=== PATIENT | female | born 1975 | race Caucasian/White ===

== ENCOUNTER 2020-09-04 07:21 | Outpatient (REF) | payer BC, SELFPAY | END 2020-09-04 07:22 | disposition home or self-care (01) | LOC: HO.LAB 07:21 | PROVIDERS: Visit Provider Internal Medicine | DX: Z20.828 Contact with and (suspected) exposure to other viral communicable diseases (principal) | CPT/HCPCS: C9803; U0003 ==

== ENCOUNTER 2024-12-07 11:05 | Observation (INO) | payer OTHER, SELFPAY ==
--- NOTE | ~2024-12-07 | XR_ITS ---
EXAMINATION: XR CHEST CLINICAL INFORMATION: pain COMPARISON: None available. TECHNIQUE: 2 views of the chest were obtained. FINDINGS: Deep inspiration. Consolidation, pleural effusion or pneumothorax. Cardiomediastinal silhouette is normal. Osseous structures are intact. XR/XR chest 2V IMPRESSION: No acute airspace disease. Electronically signed by: Darrell Galo MD 12/07/2024 11:46 AM [facility]
--- NOTE | 2024-12-07 11:09 | ECG_ITS ---
Test Reason : CHEST PAIN Blood Pressure : */* mmHG Vent. Rate : 54 BPM Atrial Rate : 54 BPM P-R Int : 154 ms QRS Dur : 76 ms QT Int : 472 ms P-R-T Axes : * -2 138 degrees QTcB Int : 447 ms Limb leads reversal Sinus bradycardia T wave abnormality, consider lateral ischemia Abnormal ECG No previous ECGs available Referred By: Generic ED Physician Electronically Signed By: Parker Ivy
--- NOTE | 2024-12-07 11:17 | ED_ITS ---
HPI - General Adult General Chief complaint: Chest Pain Stated complaint: Chest Pain/ Tightness, Jaw Discomfort Time Seen by Provider: 12/07/24 12:38 Source: patient Mode of arrival: ambulatory Limitations: no limitations History of Present Illness ED Provider: ROBBY BAILEY PA-C HPI narrative: 49 year old female with no significant pmhx presents to the ED today for evaluation of intermittent chest pain x1 week. Reports chest pain is sternal with occasional radiation to her left chest/ jaw. She does not see any correlation with exertion or eating. She reports waking with the pain this morning. Once at work, her chest began to feel tight like there was a knot that cannot untangle . Pain has been constant since waking this morning. She has not taken anything at home for this pain. Denies any personal cardiac hx or hx of VTE. Reports familial hx of HTN, no sudden cardiac deaths/ MIs. She is currently training for a 10k race that she will be running next month. No recent travel or long car rides. She is running approximately 20 miles/ week. Denies fever, chills, N/V, sob, wheezing, LE pain/swelling. Related Data Home Medications ?Medication ?Instructions ?Recorded ?Confirmed hmksdqxs-yui-jltfp ac 400 1 tab PO DAILY 12/07/24 12/07/24 mcg-calcium carb 500 mg-vit K1 20 mcg tablet (Women's 50 Plus Multivitamin) Allergies Allergy/AdvReac Type Severity Reaction Status Date / Time No Known Allergies Allergy Verified 12/07/24 11:20 Review of Systems 2 Review of Systems: Constitutional: No fever, chills, fatigue, night sweats, weight changes ENT/Mouth: No ear pain, hearing loss, nasal congestion, sinus pain, rhinorrhea, sore throat Eyes: No eye pain, swelling, redness, vision changes, discharge Cardio: No palpitations, YOON, orthopnea, peripheral edema, +chest pain Pulm: No SOB, cough, sputum, wheezing, dyspnea, hemoptysis GI: No nausea, vomiting, hematemesis, abdominal pain, diarrhea, constipation, hematochezia, melena : No irregular bleeding, dysuria, frequency, urgency, hesitancy, hematuria, flank pain, urinary flow changes, urinary incontinence or retention MSK: No back pain, neck pain, joint pain, myalgias Skin: No lesions, rashes Neuro: No weakness, numbness, paresthesias, LOC, dizziness, headache Psych: No anxiety/panic, depression, SI/HI, AH/VH All other systems reviewed and are negative. [facility] Past Medical History Attestation statement: The following information was validated with the patient. Source: old records reviewed and nursing notes reviewed Social History Social History Advance Directives: No Advance Directives Information Provided: Yes Do you have a plan to hurt others: No Plan Physical Exam ED Vital Signs: Vital Signs - 24 hr 12/07/24 11:19 12/07/24 14:22 Temperature 98 F 97.8 F Pulse Rate 54 50 Respiratory Rate 19 13 Blood Pressure 173/83 H 148/87 H Pulse Oximetry 98 100 Oxygen Delivery Method Room Air BMI result Body Mass Index 21.5 Hypertensive, bradycardic. Not hypoxic. Not tachycardic. General: Well appearing, in no acute distress. Skin: Warm, dry, intact. No rashes or lesions. Head: Normocephalic, atraumatic. EENT: Hearing is intact b/l. Conjunctiva clear. PERRLA. EOM intact. Moist mucous membranes.? Neck: Supple without LAD Cardiac: Chest wall symmetric. bradycardic, regular rhythm. no JVD or peripheral edema. Lungs: Normal respiratory effort without accessory muscle use. CTA bilaterally. No rales, rhonchi, or wheezes.? Abdomen: Soft, non-tender, non-distended. No rebound tenderness or guarding. Positive BS x4. Back: No midline spinous or paraspinal tenderness. No step off deformity. Ext: Upper and lower extremities atraumatic, without tenderness, deformity, swelling or erythema. no calf tenderness b/l. Neuro: AOx3. Normal speech. Ambulating with steady gait Course Course Course Narrative: RME, this is a rapid medical exam performed by Reed Leyva please refer to primary provider for complete H&P- 49 year old female presents for evaluation of chest pain. Patient reports intermittent chest pain for the last week. She is training for 10 km race next month. She reports that she was running about 20 miles per week. Her pain does not seem to be related to exertion or eating. Her EKG shows sinus bradycardia with T-wave inversions, plan for labs. Reevaluation(s) Reevaluation #1: CBC without leukocytosis or left shift. No anemia. H&H stable. D-dimer undetectable. PE unlikely. Chemistry without acute electrolyte abnormality requiring intervention. BUN slightly elevated to 19 with normal creatinine. Random glucose 90. Lipase WNL at 38. chest x-ray without infiltrate or consolidation to suggest pneumonia. Initial troponin 46.9. Repeat 42.1. ekg showing sinus bradycardia at a rate of 54 bpm with t wave inversions. > Given elevated troponins without priors to compare to, I did reach out to Cardiology. Dr. Ivy is requesting admission with plan for stress test tomorrow morning. Patient is agreeable. I reached out to hospitalist who will place admission orders. Medications Administered Discontinued Medications Generic Name Dose Route Start Last Admin Trade Name Freq PRN Reason Stop Dose Admin Aspirin 324 mg 12/07/24 13:06 12/07/24 13:13 Aspirin 81 Mg Tab.Chew PO 12/07/24 13:07 324 mg ONCE ONE Administration Medical Decision Making Medical Decision Making [facility] Narrative: 49 year old female with no significant pmhx presents to the ED today for evaluation of intermittent chest pain x1 week. vital signs notable for hypertension and bradycardia. otherwise wnl. she is nontoxic appearing and in NAD. not diaphoretic, sitting comfortably on exam bed. no respiratory distress, lungs clear. bradycardic w/ regular rhythm. no jvd or peripheral edema. no calf tenderness b/l. Exam without evidence of volume overload. EKG without signs of active ischemia. HEART score: 4. Given the timing of pain to ED presentation, plan to send delta troponin to evaluate for NSTEMI. Differential diagnosis also includes anemia, electrolyte abnormality, pneumonia, bronchitis, PE. Presentation not consistent pneumothorax, thoracic aortic dissection, cardiac effusion or tamponade. Plan: labs, troponin, EKG, CXR, ASA, reassessment Differential Diagnosis Differential Diagnoses: The differential diagnosis associated with the presentation includes as above. Admission/Observation Consideration of admission/observation: Escalation of care including admission/observation considered Patient admitted to medicine for elevated troponins w/ plan for stress test Consult Healthcare Provider Management of the patient was discussed with: Hospitalist (Neema Reddy) and Vice President Of Operations (Dr. Ivy (cardiology)) Lab Data [facility] Lab Attestation statement: I reviewed the patient's lab results. as above. 12/07/24 11:29 12/07/24 11:29 Labs: Lab Results 12/07/24 12/07/24 Range/Units 11:29 13:35 WBC 4.0 L (4.8-10.8) X10*3/uL RBC 4.53 (4.20-5.50) X10*6/uL Hgb 13.5 (12.0-16.0) g/dl Hct 40.1 (37.0-47.0) % MCV 88.5 (80.0-98.0) fL MCH 29.8 (27.0-33.0) pg MCHC 33.7 (31.0-35.0) g/dl RDW 13.5 (11.0-16.0) % Plt Count 192 (160-400) X10*3/uL MPV 11.5 (9.4-12.3) fL Immature Gran % (Auto) 0.2 (0.0-0.4) % Neut % (Auto) 45.5 (45-73) % Lymph % (Auto) 41.3 H (20-40) % [place] % (Auto) 9.5 (2-11) % Eos % (Auto) 2.0 (0-4) % Baso % (Auto) 1.5 (0-2) % Lymph # (Auto) 1.7 (1.2-4.9) X10*3/uL [place] # (Auto) 0.4 (0.1-1.2) X10*3/uL Eos # (Auto) 0.1 (0.0-0.4) X10*3/uL Baso # (Auto) 0.1 (0.0-0.2) X10*3/uL Abs Immat Gran (auto) 0.01 (0.00-0.03) X10*3/uL Absolute Neuts (auto) 1.8 L (2.0-8.3) x10*3/uL Absolute Nucleated RBC 0.000 (0.0-0.012) X10*3/uL Nucleated RBC % (auto) 0.0 (0.0-0.2) /100WBC PT 10.8 L (10.9-12.4) SEC INR 0.9 (0.9-1.1) D-Dimer High Sensitivty < 150 NG/ML Sodium 140 (135-145) mmol/L Potassium 4.2 (3.3-5.1) mmol/L Chloride 107 (96-108) mmol/L Carbon Dioxide 28 (22-29) mmol/L Anion Gap 9 L (12-20) BUN 19 H (9-16) mg/dL Creatinine 0.71 (0.5-1.4) mg/dL Estim Creat Clear Calc 81.9 Estimated GFR > 60 Random Glucose 90 (60-115) mg/dL Calcium 9.5 (8.4-10.2) mg/dL Magnesium 1.9 (1.6-2.6) mg/dL Total Bilirubin 0.5 (0.0-1.0) mg/dL AST 34 H (5-31) U/L ALT 21 (0-31) U/L Alkaline Phosphatase 48 (39-117) U/L Total Creatine Kinase 62 (26-140) U/L Troponin I High Sens 46.9 H 42.1 H (<3.5-17.0) ng/L Total Protein 7.1 (6.5-8.0) g/dL Albumin 4.3 (3.5-5.0) g/dL Lipase 38 (8-78) U/L Urine Color Yellow Urine Appearance Clear Urine pH 7.0 (5.0-9.0) Ur Specific [place] 1.010 (1.005-1.025) Urine Protein Negative (Neg-Trace) mg/dL Urine Glucose (UA) Negative (Negative) mg/dL Urine Ketones Negative (Negative) mg/dL Urine Blood Negative (Negative) Urine Nitrite Negative (Negative) Ur Leukocyte Esterase Negative (Negative) Urine RBC 0-2 (0-2) /HPF Urine WBC 0-5 (0-5) /HPF Ur Squamous Epith Cells 0-2 (0-2) /HPF Urine Bacteria 2+ (None Seen) Hyaline Casts 0-2 (0-2) /LPF Independent Interpretation I performed an independent interpretation of an: EKG and Plain X-Ray Interpretation: EKG showing sinus bradycardia with twave inversions cxr without infiltrate or consolidation Radiology Impression Discussion of test interpretation with radiology: I have reviewed the radiologist's reading. Radiologist Impression: Procedure(s): XR chest 2V Accession Number(s): [id number] cc: Ashley White MD; Elda Leyva EXAMINATION: XR CHEST CLINICAL INFORMATION: pain COMPARISON: None available. TECHNIQUE: 2 views of the chest were obtained. FINDINGS: Deep inspiration. Consolidation, pleural effusion or pneumothorax. Cardiomediastinal silhouette is normal. Osseous structures are intact. XR/XR chest 2V IMPRESSION: No acute airspace disease. Electronically signed by: Darrell Galo MD 12/07/2024 11:46 AM EST Prescription Management I considered prescription management with: Other (aspirin) Social Determinants Patient?s care significantly limited by Social Determinants of Health including: Other Social Determinant of Health Critical Care Time Critical Care Time Critical Care Time: No Discharge Plan Discharge Clinical Impression: Elevated troponin Patient Disposition: Admitted As Inpatient Print Language: [place]
[2024-12-07 11:19] VITALS: BP 173/83; PULSE 54; RESP 19; TEMP 36.6; O2SAT 98; BMI 21.5
[2024-12-07 11:35] LABS: MANUAL DIFF FLAG NO
[2024-12-07 11:36] LABS: Basophils Absolute Auto 0.1 X10*3/uL (0.0-0.2); Basophils Percent Auto 1.5 % (0-2); Eosinophils Absolute Auto 0.1 X10*3/uL (0.0-0.4); Hematocrit 40.1 % (37.0-47.0); Hemoglobin 13.5 g/dl (12.0-16.0); Imm Gran Abs Auto 0.01 X10*3/uL (0.00-0.03); Imm Gran Pct Auto 0.2 % (0.0-0.4); Lymphocytes Absolute Auto 1.7 X10*3/uL (1.2-4.9); Lymphocytes Percent Auto 41.3 % (20-40); Mean Corpuscular HGB Conc 33.7 g/dl (31.0-35.0); Mean Corpuscular Hemoglobin 29.8 pg (27.0-33.0); Mean Corpuscular Volume 88.5 fL (80.0-98.0); Mean Platelet Volume 11.5 fL (9.4-12.3); Monocytes Absolute Auto 0.4 X10*3/uL (0.1-1.2); Monocytes Percent Auto 9.5 % (2-11); Neutrophils Absolute Auto 1.8 x10*3/uL (2.0-8.3); Neutrophils Percent Auto 45.5 % (45-73); Platelet Count 192 X10*3/uL (160-400); Red Blood Count 4.53 X10*6/uL (4.20-5.50); Red Cell Distribution Width 13.5 % (11.0-16.0)
[2024-12-07 11:48] LABS: INTERNATIONAL NORM RATIO 0.9 (0.9-1.1); Prothrombin Time 10.8 SEC (10.9-12.4)
[2024-12-07 11:59] LABS: Troponin-I High Sensitivity 46.9 ng/L (<3.5-17.0)
[2024-12-07 12:00] LABS: Alanine Aminotransferase 21 U/L (0-31); Albumin Level 4.3 g/dL (3.5-5.0); Alkaline Phosphatase 48 U/L (39-117); Anion Gap 9 (12-20); Aspartate Amino Transferase 34 U/L (5-31); Bilirubin Total 0.5 mg/dL (0.0-1.0); Blood Urea Nitrogen 19 mg/dL (9-16); Calcium 9.5 mg/dL (8.4-10.2); Carbon Dioxide 28 mmol/L (22-29); Chloride 107 mmol/L (96-108); Creatinine Clr Calc Pharmacy 81.9; Estimated Glomerular Filt Rate > 60; Glucose Random 90 mg/dL (60-115); Lipase 38 U/L (8-78); Magnesium 1.9 mg/dL (1.6-2.6); Potassium 4.2 mmol/L (3.3-5.1); Sodium 140 mmol/L (135-145); Total Protein 7.1 g/dL (6.5-8.0)
[2024-12-07 12:49] LABS: D Dimer High Sensitivity < 150 NG/ML
[2024-12-07] MEDS: Aspirin 81 MG TAB.CHEW 324 MG PO (13:13)
[2024-12-07 13:41] LABS: Appearance Urine Clear; Color Urine Yellow; Glucose Urine UA Negative (Negative); Leukocyte Esterase Urine Negative (Negative); Nitrite Urine Negative (Negative); Urine Blood Negative (Negative); Urine Ketones Negative (Negative); Urine Protein Negative (Neg-Trace)
[2024-12-07 13:47] LABS: Bacteria Urine 2+ (None Seen); Hyaline Casts Urine 0-2 /LPF (0-2); RBC Urine 0-2 /HPF (0-2); Squamous Epithelial Cell Urine 0-2 /HPF (0-2); WBC Urine 0-5 /HPF (0-5)
[2024-12-07 14:00] LABS: Troponin-I High Sensitivity 42.1 ng/L (<3.5-17.0)
[2024-12-07 14:22] VITALS: BP 148/87; PULSE 50; RESP 13; TEMP 36.6; O2SAT 100
--- NOTE | 2024-12-07 14:45 | P.HPHOSP_ITS ---
History of Present Illness Date of Service: 12/07/24 Chief Complaint: chest pain 49 old female otherwise healthy who has been experiencing intermitent mild chest pain and jaw tightness on occasion. No shortness of breath. This has been ongoing for about a week. EKG showed no acute ischemic changes. Troponin I level ranges from 42 to 46. Cardiology is advising an inpatient stress test Review of Systems 2 Review of Systems: Gen: no fever Resp: no sob, no cough CV: no chest, no YOON, no leg edema GI: No n/v, no abd pain Neuro: No confusion Yes all other systems are reviewed and are negative [facility] Social History Unable to assess alcohol history related to: Unknown Patient Tobacco Use Status: Never used Tobacco Smoked in Last 30 Days: No Use of substances other than those prescribed or required for medical reasons: Unknown Advance Directives: No Advance Directives Information Provided: Yes Do you have a plan to hurt others: No Plan Nutrition Risks: No Nutritional Risk service: No Meds Allergies Allergy/AdvReac Type Severity Reaction Status Date / Time No Known Allergies Allergy Verified 12/07/24 11:20 Home Medications ?Medication ?Instructions ?Recorded ?Confirmed ?Last Taken ?Type oquimalx-boy-lqrnp ac 400 1 tab PO DAILY 12/07/24 12/07/24 12/06/24 History mcg-calcium carb 500 mg-vit K1 20 mcg tablet (Women's 50 Plus Multivitamin) Physical Exam 2 Vital Signs and Narrative: Vital Signs: Last Vital Signs Temp 97.8 F 12/07/24 14:22 Pulse 50 12/07/24 14:22 Resp 13 12/07/24 14:22 BP 148/87 H 12/07/24 14:22 Pulse Ox 100 12/07/24 14:22 O2 Del Method Room Air 12/07/24 14:22 BMI result Body Mass Index 21.5 Const: Other: General: AO X 3, no acute distress Resp: CTA bilateral CVS: S1,S2,RRR GI: +BS, NT, no distention Skin: No rash Neuro: motor grossly intact Psych: appropriate affect Results Labs 12/07/24 11:29 12/07/24 11:29 Labs: Laboratory Results - last 24 hr 12/07/24 12/07/24 11:29 13:35 MCV 88.5 MCH 29.8 MCHC 33.7 RDW 13.5 Plt Count 192 MPV 11.5 Immature Gran % (Auto) 0.2 Neut % (Auto) 45.5 Lymph % (Auto) 41.3 H [place] % (Auto) 9.5 Eos % (Auto) 2.0 Baso % (Auto) 1.5 Lymph # (Auto) 1.7 [place] # (Auto) 0.4 Eos # (Auto) 0.1 Baso # (Auto) 0.1 Abs Immat Gran (auto) 0.01 Absolute Neuts (auto) 1.8 L Absolute Nucleated RBC 0.000 Nucleated RBC % (auto) 0.0 PT 10.8 L INR 0.9 D-Dimer High Sensitivty < 150 Anion Gap 9 L Estim Creat Clear Calc 81.9 Estimated GFR > 60 Random Glucose 90 Calcium 9.5 Magnesium 1.9 Total Bilirubin 0.5 AST 34 H ALT 21 Alkaline Phosphatase 48 Total Creatine Kinase 62 Total Protein 7.1 Albumin 4.3 Lipase 38 Urine Color Yellow Urine Appearance Clear Urine pH 7.0 Ur Specific [place] 1.010 Urine Protein Negative Urine Glucose (UA) Negative Urine Ketones Negative Urine Blood Negative Urine Nitrite Negative Ur Leukocyte Esterase Negative Urine RBC 0-2 Urine WBC 0-5 Ur Squamous Epith Cells 0-2 Urine Bacteria 2+ Hyaline Casts 0-2 Imaging Radiologist's Impressions: Impressions Chest X-Ray 12/07/24 11:22 IMPRESSION: No acute airspace disease. Electronically signed by: Darerll Galo MD 12/07/2024 11:46 AM [facility] Assessment and Plan (1) Chest pain: Status: Acute Plan 49/F female with atypical chest pain and mild rise in troponin I. Plan observe overnight, Cardiology advising stress test inpatient. Further management by Cardiology Quality Stroke Does the patient have a stroke diagnosis?: No VTE Prior VTE?: No VTE Risk Level:: Medical - moderate - high VTE Device Contraindication: Treatment Not Indicated VTE Drug Contraindication: N/A - Med Ordered
--- NOTE | 2024-12-07 15:17 | PHA.MEDREC ---
Addendum entered by Kuldeep [facility] 12/07/24 15:20: med rec reviewed Original Note: Pharmacy Consult ? Medication Reconciliation Pharmacy has completed the medication reconciliation. Spoke with patient and she confirmed she is only taking a Women's 50+ Multivitamin once a day and states she took one this morning.
[2024-12-07 19:32] VITALS: BP 125/68; PULSE 52; RESP 12; TEMP 36.4; O2SAT 100
[2024-12-08] VITALS: BP 108/58; PULSE 53; RESP 16; TEMP 36.7; O2SAT 96
--- NOTE | 2024-12-08 | CA_ITS ---
Acquisition Time: 2024-12-08 11:29:05 Total Exercise Time: 00:10:29 Test Indications: CP ELVATED TROPONIN Medications: NONE Protocol: RADHA Max HR: 160 BPM 94% of Pred: 170 BPM Max BP: 160/80 mmHG Max Work Load: 12.5 METS Exercise Stress Test with exercise 10 mins 29 secs of Radha Protocol, achieving 94% MPHR, with reports of 1/10 dull upper left sided chest pain at baseline that is reproducible and states got more pronounced during exercise and reported moving to the right side, went upto 2 at peak exercise, without any arrythmias, with normotensive response to exercise. Without EKG changes meeting criteria for ischemia. In recovery, pt notes the discomfort as pressure and is at less than 1. Test reviewed with Dr. Ivy. May need further testing with images per Dr. Ivy. Referred By: Tim Pires Electronically Signed By: Tim Pires
[2024-12-08 03:28] VITALS: BP 123/66; PULSE 75; RESP 16; TEMP 36.6; O2SAT 98
[2024-12-08 06:22] VITALS: BP 107/66; PULSE 52; RESP 15; TEMP 36.7; O2SAT 98
--- NOTE | 2024-12-08 08:46 | MHC.CM.PN ---
CM met with Patient at bedside, in the ED, and addressed WOODS with her, providing Patient with the original and a copy will be placed on the chart. Patient lives alone in a house and she is functionally independent. No HCP completed today and PCP is Dr. Ashley White. Patient's car is here for transport to home at in.
[2024-12-08] MEDS: Multivitamin TABLET 1 TAB PO (09:07)
--- NOTE | 2024-12-08 11:00 | PC.NURSE ---
cardiology consult being completed at this time.
--- NOTE | 2024-12-08 11:34 | PM.CNCAR ---
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 She has been experiencing chest pain and came to the emergency department. She is saying when she exercises she does not get any symptoms but randomly she will get chest pains. She had 1 episode while at a restaurant eating which he has sharp pains under her ribs. She said she did not feel right after that and was getting fatigued and was not feeling herself. She also had another episode at rest. She clearly is describing no exertional symptoms. She has no significant past history. She has been active and exercising regularly. She uses multivitamins. [facility] Social History Social History Unable to assess alcohol history related to: Unknown Patient Tobacco Use Status: Never used Tobacco [facility] service: No Meds Allergies Allergy/AdvReac Type Severity Reaction Status Date / Time No Known Allergies Allergy Verified 12/07/24 11:20 Active Medications: Current Medications Acetaminophen (Acetaminophen 325 Mg Tablet) 650 mg PO Q6H PRN PRN Reason: Pain, Mild 1-3,fever,headache Al Hydroxide/Mg Hydroxide (Magnesium Hydrox/Alum Hydrox 30 Ml Oral.Susp) 30 ml PO Q4H PRN PRN Reason: Heartburn Calcium Carbonate (Calcium Carbonate 750 Mg Tab.Chew) 750 mg PO Q4H PRN PRN Reason: Heartburn Magnesium Hydroxide (Milk Of Magnesia 30 Ml Oral.Susp) 30 ml PO DAILY PRN PRN Reason: Constipation Melatonin (Melatonin 3 Mg Tablet) 6 mg PO BEDTIME PRN PRN Reason: Insomnia Multivitamins/Vitamin C (Multivitamin Tablet) 1 tab PO DAILY VERN Last Admin: 12/08/24 09:07 Dose: 1 tab Nitroglycerin (Nitroglycerin 0.4 Mg Tab.Subl) 0.4 mg SUBLINGUAL Q5MX3 PRN PRN Reason: Chest Pain Ondansetron HCl (Ondansetron Hcl 4 Mg/2 Ml Vial) 4 mg IVPUSH Q8H PRN PRN Reason: Nausea and Vomiting Polyethylene Glycol (Polyethylene Glycol 3350 17 Gm Powd.Pack) 17 gm PO DAILY PRN PRN Reason: Constipation Sodium Chloride (0.9 % Sodium Chloride Flush 3 Ml Syringe) 3 ml IVFLUSH QSHIFT VERN Last Admin: 12/08/24 07:11 Dose: Not Given Home Medications ?Medication ?Instructions ?Recorded ?Confirmed ?Last Taken ?Type bjyjfnkr-qsp-qpirj ac 400 1 tab PO DAILY 12/07/24 12/07/24 12/06/24 History mcg-calcium carb 500 mg-vit K1 20 mcg tablet (Women's 50 Plus Multivitamin) Physical Exam Vital Signs: Vital Signs: Last Vital Signs Temp 98.0 F 12/08/24 06:22 Pulse 52 12/08/24 06:22 Resp 15 12/08/24 06:22 BP 107/66 12/08/24 06:22 Pulse Ox 98 12/08/24 06:22 O2 Del Method Room Air 12/08/24 06:22 BMI result Body Mass Index 21.5 GENERAL APPEARANCE: in no acute distress, pleasant. NECK: no carotid bruit, no jugular venous distention. SKIN: no suspicious lesions, warm and dry. HEART: no murmurs, regular rate and rhythm. LUNGS: clear to auscultation bilaterally. ABDOMEN: soft, nontender. EXTREMITIES: no edema. PERIPHERAL PULSES: equal. NEUROLOGIC: No gross deficits, AAO X 3 Objective Labs and Meds 12/07/24 11:29 12/07/24 11:29 Lab results: Laboratory Results - last 24 hr 12/07/24 12/07/24 11:29 13:35 WBC 4.0 L RBC 4.53 Hgb 13.5 Hct 40.1 MCV 88.5 MCH 29.8 MCHC 33.7 RDW 13.5 Plt Count 192 MPV 11.5 Immature Gran % (Auto) 0.2 Neut % (Auto) 45.5 Lymph % (Auto) 41.3 H [place] % (Auto) 9.5 Eos % (Auto) 2.0 Baso % (Auto) 1.5 Lymph # (Auto) 1.7 [place] # (Auto) 0.4 Eos # (Auto) 0.1 Baso # (Auto) 0.1 Abs Immat Gran (auto) 0.01 Absolute Neuts (auto) 1.8 L Absolute Nucleated RBC 0.000 Nucleated RBC % (auto) 0.0 PT 10.8 L INR 0.9 D-Dimer High Sensitivty < 150 Sodium 140 Potassium 4.2 Chloride 107 Carbon Dioxide 28 Anion Gap 9 L BUN 19 H Creatinine 0.71 Estim Creat Clear Calc 81.9 Estimated GFR > 60 Random Glucose 90 Calcium 9.5 Magnesium 1.9 Total Bilirubin 0.5 AST 34 H ALT 21 Alkaline Phosphatase 48 Total Creatine Kinase 62 Troponin I High Sens 46.9 H 42.1 H Total Protein 7.1 Albumin 4.3 Lipase 38 Urine Color Yellow Urine Appearance Clear Urine pH 7.0 Ur Specific [place] 1.010 Urine Protein Negative Urine Glucose (UA) Negative Urine Ketones Negative Urine Blood Negative Urine Nitrite Negative Ur Leukocyte Esterase Negative Urine RBC 0-2 Urine WBC 0-5 Ur Squamous Epith Cells 0-2 Urine Bacteria 2+ Hyaline Casts 0-2 Imaging Radiologist's impression: Impressions Chest X-Ray 12/07/24 11:22 IMPRESSION: No acute airspace disease. Electronically signed by: Darrell Galo MD 12/07/2024 11:46 AM [facility] Assessment and Plan (1) Chest pain: Status: Acute Plan [age] year female presenting with chest pains. She is describing pain at rest on couple of occasions but does not get any exertional symptoms. High sensitivity troponin levels are in 40s. EKGs does not have any dynamic changes. She was referred for exercise stress test where she was able to exercise for more than 10 minutes and achieved 94% of predicted heart rate. She had upsloping ST depressions mostly. Overall the stress test is quite reassuring because she was getting pain at rest and was able to exercise 10 minutes without significant symptoms or changes on the ECG. Can be discharged back home. We will arrange follow-up for further workup if required. Thank you for allowing me to participate in the care of your patient. Please feel free to contact me if you have any questions. Procedures Date of Service Date of Service: 12/08/24
[2024-12-08 12:22] VITALS: BP 124/79; PULSE 95; RESP 16; TEMP 36.7; O2SAT 98
--- NOTE | 2024-12-08 13:29 | P.DS_ITS ---
DS: Providers Provider Date of Service: 12/08/24 Date of admission: 12/07/24 15:51 Date of discharge: 12/08/24 Primary care physician: Ashley White MD Consults: 12/07/24 15:51 Consult to Cardiology Routine Consulting Provider: [facility] Reason for consultation: chest pain, elevated troponin Has provider been notified: Yes DS: Diagnosis Discharge Diagnosis (1) Chest pain: Status: Acute DS: Summary Hospital Course Hospital Course: admission hpi Chief Complaint: chest pain 49 old female otherwise healthy who has been experiencing intermitent mild chest pain and jaw tightness on occasion. No shortness of breath. This has been ongoing for about a week. EKG showed no acute ischemic changes. Troponin I level ranges from 42 to 46. Cardiology is advising an inpatient stress test hosptial course: Patient was observed, and underwent excercise stress test by Daljit Saw with the following finding: Exercise Stress Test with exercise 10 mins 29 secs of Daljit Protocol, achieving 94% MPHR, with reports of 1/10 dull upper left sided chest pain at baseline that is reproducible and states got more pronounced during exercise and reported moving to the right side, went upto 2 at peak exercise, without any arrythmias, with normotensive response to exercise. Without EKG changes meeting criteria for ischemia. In recovery, pt notes the discomfort as pressure and is at less than 1 She will follow up with Dr. Ivy on outpatient basis for further testing. Time Attestation Discharge Coordination Time (in mins): 35 Quality: Safe Use of Opioids Does Pt have an Active Cancer Diagnosis on the Problem List?: No Quality: Stroke Does the patient have a stroke diagnosis?: No Physical Exam Vital Signs: Vital Signs: Last Vital Signs Temp 98.0 F 12/08/24 12:22 Pulse 95 12/08/24 12:22 Resp 16 12/08/24 12:22 BP 124/79 12/08/24 12:22 Pulse Ox 98 12/08/24 12:22 O2 Del Method Room Air 12/08/24 12:22 BMI result Body Mass Index 21.5 Const: Other: General: AO X 3, no acute distress Resp: CTA bilateral CVS: S1,S2,RRR GI: +BS, NT, no distention Skin: No rash Neuro: motor grossly intact Psych: appropriate affect DS: Data Data Completed and Pending Labs on day of discharge: Laboratory Results - last 24 hr 12/07/24 13:35 Troponin I High Sens 42.1 H Urine Color Yellow Urine Appearance Clear Urine pH 7.0 Ur Specific [place] 1.010 Urine Protein Negative Urine Glucose (UA) Negative Urine Ketones Negative Urine Blood Negative Urine Nitrite Negative Ur Leukocyte Esterase Negative Urine RBC 0-2 Urine WBC 0-5 Ur Squamous Epith Cells 0-2 Urine Bacteria 2+ Hyaline Casts 0-2 Discharge Plan Discharge Anticipated Discharge Date/Time: 12/08/24 13:30 Patient Disposition: Home, Self-Care Discharge Diagnosis: Chest pain, abnormal troponin I Referrals: Ashley White MD [Primary Care Provider] - 1 Week Discharge Medications: Continued Women's 50 Plus Multivitamin 400 mcg-500 mg calcium-20 mcg Tablet 1 tab PO DAILY Diet: Advance to usual diet Activity on Discharge: As tolerated Stand Alone Forms: Patient Portal Discharge page Print Language: Armenian Care Plan Goals: Further cardiac testing on outpatient basis Health Concerns: chest pain abnormal troponin Plan of Treatment: Outpatient cardiac testing with Dr. Ivy Assessment: see christi
--- NOTE | 2024-12-08 13:45 | MHC.CM.PN ---
Patient has been medically cleared for dc to home today, self care.
[2024-12-08 14:29] VITALS: BP 124/79; PULSE 95; RESP 16; TEMP 36.7; O2SAT 98
== END 2024-12-08 14:24 | disposition home or self-care (01) ==
LOC: HO.ED 15:40 → HO.EDOVER 16:04
PROVIDERS: Physician Assistant; Physician Assistant Medical; Admitting Provider Internal Medicine; Emergency Provider Emergency Medicine; PCP Family Medicine; Visit Provider Internal Medicine
DX: R07.9 Chest pain, unspecified (principal); R68.84 Jaw pain; R79.89 Other specified abnormal findings of blood chemistry
CPT/HCPCS: 36415; 71046; 80053; 81001; 82550; 83690; 83735; 84484; 85025; 85379; 85610; 93005; 93017; 99222; 99285

== ENCOUNTER → 2024-12-07 11:09 | Outpatient (BNV) | payer OTHER, SELFPAY | PROVIDERS: Admitting Provider Internal Medicine; Emergency Provider Emergency Medicine; PCP Family Medicine; Visit Provider Internal Medicine Cardiovascular Disease | DX: R07.9 Chest pain, unspecified (principal); R00.1 Bradycardia, unspecified | CPT/HCPCS: 93010 ==

== ENCOUNTER → 2024-12-07 11:22 | Outpatient (BNV) | payer BC, SELFPAY | PROVIDERS: PCP Family Medicine; Visit Provider Radiology Diagnostic Radiology | DX: R07.9 Chest pain, unspecified (principal) | CPT/HCPCS: 71046 ==

== ENCOUNTER 2024-12-07 15:51 | Outpatient (BNV) | payer OTHER, SELFPAY | END 2024-12-08 11:29 | PROVIDERS: Admitting Provider Internal Medicine; Emergency Provider Emergency Medicine; PCP Family Medicine | DX: R07.9 Chest pain, unspecified (principal) | CPT/HCPCS: 93016; 93018 ==

== ENCOUNTER → 2024-12-07 15:51 | Outpatient (BNV) | payer OTHER, SELFPAY | PROVIDERS: Admitting Provider Internal Medicine; Emergency Provider Emergency Medicine; PCP Family Medicine; Visit Provider Internal Medicine Cardiovascular Disease | DX: R07.9 Chest pain, unspecified (principal) | CPT/HCPCS: 99223 ==

== ENCOUNTER → 2024-12-07 15:51 | Outpatient (BNV) | payer OTHER, SELFPAY | PROVIDERS: Admitting Provider Internal Medicine; Emergency Provider Emergency Medicine; PCP Family Medicine; Visit Provider Internal Medicine | DX: R07.9 Chest pain, unspecified (principal) | CPT/HCPCS: 99239 ==

== ENCOUNTER 2025-01-06 14:35 | Outpatient (AMB) | payer OTHER, SELFPAY ==
--- NOTE | 2025-01-06 14:38 | MHC.OFFVIS ---
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 Patient has no known history of coronary artery disease, ischemic disease, or cardiomyopathy. Patient is very active and has been a runner through her life. She was recently hospitalized with chest pain that radiated into her jaw. She underwent a stress test at that time. Today, the patient reports experiencing continued intermittent chest pain however, she notes that there has been some improvement since starting omeprazole. But the pain can be with exertion as well as at rest. Patient is currently also under the care of a GI doctor and is scheduled to undergo a breath urea chest to rule out H pylori infection. The patient denies any other symptoms including exertional shortness of breath, jaw pain, palpitations, dizziness, fatigue, orthopnea, PND, leg edema, presyncope, or syncope. [facility] Family History Mother High blood pressure Father High blood pressure Maternal Grandmother Diabetes Social History Alcohol intake: current Alcohol intake frequency: a few times a month Patient Tobacco Use Status: Never used Tobacco service: No Review of Systems Const Denies weakness ENT Denies dizziness Card Denies chest pain, Denies chest pain with activity, Denies syncope, Denies rapid heart rate, Denies pedal edema, Denies edema, Denies leg edema, Denies lightheadedness, Denies palpitations, Denies dyspnea, Denies dyspnea on exertion and Denies orthopnea Resp Denies cough, Denies dyspnea and Denies dyspnea on exertion GI Denies hematochezia and Denies change in stool character Musc Denies abnormal gait, Denies muscle cramps, Denies muscle weakness, Denies numbness, Denies radiating pain into limb and Denies tingling Neuro Denies abnormal gait, Denies dizziness, Denies syncope, Denies numbness, Denies tingling and Denies weakness Endo Denies palpitations Physical Exam Vital Signs: Last Vital Signs Pulse 70 01/06/25 14:39 BP 122/62 01/06/25 14:39 BMI result Body Mass Index 20.8 Const General: cooperative, healthy appearing, comfortable and no acute distress Orientation/consciousness: patient oriented x3 HEENT Head: Yes normal to inspection Neck Neck: Yes normal visual inspection, Yes trachea midline and Yes supple Chest Chest palpation & inspection: normal inspection of the chest Resp Effort & Inspection: normal respiratory effort Auscultation: clear to auscultation bilaterally, no crackles, no rales, no rhonchi and no wheezes Cardio Jugular venous distension: no JVD Palpation: normal PMI Rate: regular rate Rhythm: regular rhythm Heart sounds: S1 normal heart sound present, S2 normal heart sound present, no click, no gallops, no murmurs and no rubs Peripheral pulses: Peripheral pulses 2+ throughout GI Inspection: Yes normal to inspection Palpation (GI): Soft to palpation Auscultation: normal bowel sounds Skin General skin exam: no rashes or lesions noted Neuro General: patient oriented x3 Extrem General: Yes normal to inspection, No no pedal edema and No calf tenderness Psych Appearance: grossly normal Mental Status: mental status grossly normal Speech and movement: Normal speech and movement present Assessment & Plan Assessment & Plan (1) Atypical chest pain: Code(s): R07.89 - Other chest pain Category: Medical (2) Hospital discharge follow-up: Code(s): Z09 - Encounter for follow-up examination after completed treatment for conditions other than malignant neoplasm Plan 12/08/2024-during the hospital stay, patient underwent a treadmill stress test with exercise 10 minutes 29 seconds, achieving 94% MPHR. Patient had no EKG changes during this test however her chest pain that was 1/10 dull upper left-sided pain at baseline got more pronounced during exercise and reported moving to the right side. Due to the ongoing symptoms and increased intensity of the chest pain during the treadmill stress test, we will proceed with an echocardiogram and a stress echocardiogram to rule out any cardiac etiology including, ischemic disease, as well as any wall motion or valvular abnormalities. Further treatment based on the findings. Advised patient to seek ER care in case of exertional chest pain not resolved with rest. If the test is negative, patient will follow up with us as needed. In the interim, patient will call us with any concerns or change in symptoms. This note was generated using voice recognition software. While every effort has been made to ensure accuracy and proper manager budget, there may be occasional errors that could affect the content or meaning of the described symptoms. Orders: Orders CA echo stress exercise Today R07.89 - Other chest pain CA echo transesophageal Today R07.89 - Other chest pain Coding Level of Care Code Est Pt Level 4 (55387) Complex EM visit Add On G2211 Diagnoses Atypical chest pain R07.89 Hospital discharge follow-up Z09 Time Spent (min) 31 Comment Time spent in reviewing the chart, test results, assessment, counseling and documentation.
[2025-01-06 14:39] VITALS: BP 122/62; PULSE 70; BMI 20.8
== END 2025-01-06 14:59 | disposition home or self-care (01) ==
LOC: HO.HCS 14:35
PROVIDERS: PCP Family Medicine
DX: R07.89 Other chest pain (principal); Z09 Encounter for follow-up examination after completed treatment for conditions other than malignant neoplasm
CPT/HCPCS: 99214

== ENCOUNTER → 2025-01-06 14:35 | Outpatient (BNVA) | payer OTHER, SELFPAY | PROVIDERS: PCP Family Medicine ==

== ENCOUNTER → 2025-02-10 15:11 | Outpatient (REF) | payer OTHER, SELFPAY ==
--- NOTE | 2025-02-10 15:13 | CA_ITS ---
Transthoracic Echocardiogram Patient (Last, First, Middle): Katheryn Quintero, Gender: Female Date of : 1975 Age: 49 Procedure Date: 02/10/2025 Procedure Type: Transthoracic Echocardiogram Location: OP Height: 162. cm Weight: 55.34 kg BSA: 1.58 m2 Heart Rate: 42 bpm BP: 142 / 80 mmHg Director Of Cardiac Cath Lab: [facility]OB[facility] Rudd MD: Tim Pires WICK TENDER Symptoms: R07.89 - Other chest pain Study Quality: Adequate ECG Rhythm: Bradycardia Conclusions: - Normal left ventricular size, thickness, systolic function, and wall motion. The visually estimated ejection fraction is between 60-65%. Diastolic function is normal for age. - Normal right ventricular cavity size and systolic function. Findings Left Ventricle Normal left ventricular size, thickness, systolic function, and wall motion. The visually estimated ejection fraction is between 60-65%. Diastolic function is normal for age. Right Ventricle Normal right ventricular cavity size and systolic function. Atria Both atria are normal in size. Aortic Valve The aortic valve was not well visualized. There is no aortic valve stenosis. There is no aortic valve regurgitation. Mitral Valve The mitral valve appears normal. There is no mitral valve regurgitation. There is no mitral valve stenosis. Pulmonic Valve The pulmonic valve is likely normal. Tricuspid Valve Normal tricuspid valve structure. There is no tricuspid valve regurgitation. Normal right atrial pressure. There is no evidence of pulmonary hypertension. Great Vessels All visible segments of the aorta are normal in size. The visualized portions of the pulmonary artery and branches are normal. Venous The inferior vena cava is normal in size and collapses greater than 50% with inspiration. Pericardium/Pleural There is no evidence of pericardial effusion. Prior Study Comparison No prior study available for comparison. Measurements 2D Linear Measurements IVSd: 0.81 0.6-0.9/0.6-1.0 cm LVIDd: 4.37 3.9-5.3/4.2-5.9 cm LVIDd Index: 2.77 2.4-3.2/2.2-3.1 cm/m2 LVIDs: 2.30 2.0-3.6 cm LVPWd: 0.91 0.7-1.1 cm LA Diam: 3.30 2.7-3.8/3.0-4.0 cm LAIDs Index: 2.09 1.5-2.3 cm/m2 LV Mass: 148.34 67-162/88-224 g LV Mass Index: 93.89 43-95/49-115 g/m2 LVOT Diam: 1.80 3.0+(-)1.3 cm 2D Systolic Function EF 4C: 64.50 >55% EF 2C: 73.50 >55% EF BiP: 66.70 >55% Mitral Valve MV Pk E: 0.86 MV PK A: 0.48 MV Decel Time: 280.00 E/A: 1.80 E'Lateral: 10.80 E'Medial: 8.92 E/E' Med: 9.60 E/E' Lat: 7.90 PHT: 82.00 MVA PHT: 2.68 Decel Edmunds: 3.06 Aortic Valve AoV Pk Guillaume: 1.14 AoV Mn Guillaume: 0.83 AoV VTI: 0.32 AoV Pk Grad: 5.00 Aov Mn Grad: 3.00 EMILY Cont.VTI: 1.92 LVOT LVOT Pk Guillaume: 0.95 LVOT Mn Guillaume: 0.66 LVOT VTI: 0.24 LVOT Pk Grad: 4.00 LVOT Mn Grad: 2.00 LVOT Diam: 1.80 LVOT Area: 2.54 Diastolic Function MV Pk E: 0.86 MV Pk A: 0.48 E/A: 1.80 E'Medial: 8.92 E/E' Med: 9.60 E' Laterial: 10.80 E/E' Lat: 7.90 Right Ventricle TAPSE (mm): 24.00 TVS' Guillaume: 10.40 Tricuspid Valve TR Pk Guillaume: 1.33 TR Pk Grad: 7.00 RA Press: 3.00 RVSP: 10.00 Great Vessels Aorta Sinus of Valsalva: 2.80 2.0-3.5 cm Ao Asc: 2.80 2.1-3.4 cm Ao Arch: 2.10 Pulmonary Valve PV Pk Guillaume: 0.81 Peak PV Grad: 3.00 Updated in Other Vendor System with Status of Final Parker Ivy MD electronically signed on 02/12/2025 10:20:07 PM with status of Final
== END ==
LOC: HO.CARD 15:11
PROVIDERS: PCP Family Medicine
DX: R07.89 Other chest pain (principal)
CPT/HCPCS: 93306

== ENCOUNTER → 2025-02-10 15:13 | Outpatient (BNV) | payer OTHER, SELFPAY | PROVIDERS: PCP Family Medicine; Visit Provider Internal Medicine Cardiovascular Disease | DX: R07.89 Other chest pain (principal) | CPT/HCPCS: 93306 ==

== ENCOUNTER → 2025-03-01 10:59 | Outpatient (REF) | payer OTHER, SELFPAY ==
--- NOTE | 2025-03-01 11:01 | CA_ITS ---
Acquisition Time: 2025-03-01 11:14:53 Total Exercise Time: 00:09:30 Test Indications: CP Medications: PANTOPRAZOLE FAMOTIDINE Protocol: RADHA Max HR: 157 BPM 92% of Pred: 170 BPM Max BP: 170/82 mmHG Max Work Load: 10.9 METS Exercise stress test with exercise 9 mins 30 secs of Radha Protocol, achieving 92% MPHR, with reports of 1/10 chest pain at baseline that gets more prnounced with palpation, the chest pain went upto 3/10 radiating into the back with exercise as well as some SOB, without any arrythmias, with normotensive repsonse to exercise. With borderline ST segment- mostly upsloping in all leads that improved in recovery. CP returned to baseline and SOB resolved. Echo images were obtained by tech at rest and post peak exercise. Definity contrast utilized. Test reviewed with Dr. Ivy. Referred By: Tim Pires Electronically Signed By: Tim Pires
== END ==
LOC: HO.CARD 10:59
PROVIDERS: PCP Family Medicine
DX: R07.89 Other chest pain (principal)
CPT/HCPCS: 93350; Q9957

== ENCOUNTER → 2025-03-01 11:01 | Outpatient (BNV) | payer OTHER, SELFPAY | PROVIDERS: PCP Family Medicine | DX: R07.9 Chest pain, unspecified (principal); R06.02 Shortness of breath | CPT/HCPCS: 93016; 93018; 93350; 93352 ==

== ENCOUNTER 2025-07-14 17:55 | Emergency (ER) | payer OTHER, SELFPAY ==
[2025-07-14 18:01] VITALS: BP 143/73; PULSE 86; RESP 16; TEMP 36.4; O2SAT 100; BMI 21.3
--- NOTE | 2025-07-14 18:01 | ED.GENADULT ---
HPI - General Adult General Chief complaint: Animal Bite Stated complaint: wants rabies shots Time Seen by Provider: 07/14/25 21:02 Source: patient Mode of arrival: ambulatory Limitations: no limitations History of Present Illness ED Provider: ROBBY BAILEY PA-C HPI narrative: 50-year-old female presents to the ED today for evaluation of dog bite to right calf sustained yesterday. Patient states she was on school property at approximately 4:00 p.m. yesterday when she watched an unknown dog walk up to another teacher, suddenly a 2nd unknown dog ran up to her and bit her right lower leg. Following the bite, a woman ran up and grabbed the dogs, put them in her car and drove away. Stated she was the pi/senior research associate. There was no further contact with this individual. No known information regarding the dog. The school speech language pathologist was immediately notified. Incident report was filed with both the school and PD. Vaccination status of the dog is unknown. Only partial license plate of the vehicle was visualized and to her knowledge, police have not been able to locate the woman or the dogs. She does not report any pain or discomfort around the bite. Denies fever, chills. She is requesting rabies vaccine at this time. Tetanus is up-to-date as of 2021. Related Data Home Medications ?Medication ?Instructions ?Recorded ?Confirmed bmrglkaf-yyi-tqwkh ac 400 1 tab PO DAILY 12/07/24 01/06/25 mcg-calcium carb 500 mg-vit K1 20 mcg tablet (Women's 50 Plus Multivitamin) omeprazole 20 mg capsule,delayed 20 mg PO DAILY 01/06/25 01/06/25 release Previous Rx's ?Medication ?Instructions ?Recorded amoxicillin 875 mg-potassium 1 tab PO Q12H 10 days #20 tabs 07/14/25 clavulanate 125 mg tablet Allergies Allergy/AdvReac Type Severity Reaction Status Date / Time No Known Allergies Allergy Verified 07/14/25 18:02 Review of Systems Review of Systems: Yes all other systems are reviewed and are negative PMFSH Past Medical History Attestation statement: The following information was validated with the patient. Source: old records reviewed and nursing notes reviewed Family History Family History Mother High blood pressure Father High blood pressure Maternal Grandmother Diabetes Social History Social History Alcohol intake: current Alcohol intake frequency: a few times a month Patient Tobacco Use Status: Never used Tobacco Advance Directives: No Advance Directives Information Provided: No service: No Physical Exam ED Vital Signs: Vital Signs - 24 hr 07/14/25 18:01 07/14/25 22:25 Temperature 97.6 F 97.6 F Pulse Rate 86 86 Respiratory Rate 16 16 Blood Pressure 143/73 H 143/73 H Pulse Oximetry 100 100 Oxygen Delivery Method Room Air Room Air BMI result Body Mass Index 21.3 Patient is hypertensive, vitals are otherwise WNL General: Well appearing, in no acute distress. Skin: Warm, dry, intact. No rashes or lesions. Head: Normocephalic, atraumatic. EENT: Hearing is intact b/l. Conjunctiva clear. PERRLA. EOM intact. Moist mucous membranes.? Neck: Supple without LAD Cardiac: Chest wall symmetric. RRR Lungs: Normal respiratory effort without accessory muscle use. CTA bilaterally Ext: + see photo of right calf below. Neuro: AOx3. Normal speech. Ambulating with steady gait. Course Course Course Narrative: This is a rapid medical exam performed by Flor Wheeler NP: Additional HPI, ROS, PE not included below will be deferred to primary provider. Patient is a 50y/o F presenting to the ED with complaint of dog bite to right calf. States she was on school property after school yesterday and noted a stray dog, went up to it with another teacher when a second dog ran over and bit her right lower leg. A women then came and took the dogs, put them in her car and drove away, stated she was the pi/senior research associate. Patient states school speech language pathologist was notified, incident reports were filed with both the school and police. Vaccination status of the dog is unknown. She only got a partial plate of the vehicle and to her knowledge police have not been able to locate the woman/dogs. Plan: will need rabies vaccine and immunoglobulin Medications Administered Discontinued Medications Generic Name Dose Route Start Last Admin Trade Name Freq PRN Reason Stop Dose Admin Amoxicillin/Clavulanate Potassium 875 mg 07/14/25 22:10 07/14/25 22:20 Amoxicillin/Potassium Clav 875 Mg Tablet PO 07/14/25 22:11 875 mg ONCE ONE Administration Rabies Immune Globulin 1,088.62 unit 07/14/25 21:25 07/14/25 21:39 Rabies Immune Globulin/Pf 300 Unit/Ml Vial 20 unit/kg (1088.62 unit) 07/14/25 21:26 1,088.62 unit IM Administration ONCE ONE Rabies Vaccine 1 ml 07/14/25 21:25 07/14/25 21:47 Rabies Vaccine (Pcec)/Pf 1 Ml Vial IM 07/14/25 21:26 1 ml .ONCE ONE Administration Medical Decision Making Medical Decision Making MDM Narrative: 50-year-old female presents to the ED today for evaluation of dog bite to right calf sustained yesterday. Patient is hypertensive, vitals are otherwise WNL. She is well-appearing and in no acute distress. Please refer to exam photo for findings. Differential diagnosis includes animal bite, rabies. Presentation not consistent with cellulitis, hematoma, retained foreign body, abscess. Plan for rabies series, first dose of Augmentin and discharge home. Tdap UTD. Differential Diagnosis Differential Diagnoses: The differential diagnosis associated with the presentation includes as above. Admission/Observation Not indicated Prescription Management I considered prescription management with: Antibiotic (Augmentin) Social Determinants Patient?s care significantly limited by Social Determinants of Health including: Other Social Determinant of Health Critical Care Time Critical Care Time Critical Care Time: No Discharge Plan Discharge Clinical Impression: Dog bite Patient Disposition: Home, Self-Care Instructions: Animal Bite (ED), Rabies (ED) Additional Instructions: You have been evaluated in the Emergency Department today for an animal bite to your rigght leg. Please keep the area surrounding the wounds clean and dry and watch closely for signs of infection. Augmentin is an antibiotic that has been sent to your pharmacy for treatment. On Augmentin, softer bowel movements are to be expected. Call your provider if you move your bowels more than 4 times a day, your bowel movements are almost all liquid, or you get a rash.? Please take the antibiotics prescribed to you in full, as directed. You were also provided with the first rabies shot in the rabies vaccination treatment series. As discussed, please follow up with the infusion center for subsequent vaccinations over the next week. Instructions provided on separate paper. Your tetanus shot is up-to-date as of 2021. Please follow up with your primary care provider within two days. Return to the Emergency Department if you experience worsening or uncontrolled pain, spreading redness, fevers 100.4? or greater, pus from your bite, or for any other concerning symptoms. In the case of an emergency call 911. Rabies follow up with the [facility]: Upon discharge from the ED today, you will be contacted by the Infusion Center to schedule your follow up Rabies vaccines. You will need a total of 3 more injections. If for some reason you do not receive a call, please call the Infusion Center directly at [phone]. Follow up with your primary care provider after completion of the vaccine to have a titer drawn to ensure the vaccines effectiveness. Prescriptions: New amoxicillin-pot clavulanate 875-125 mg tablet 1 tab PO Q12H 10 Days Qty: 20 0RF No Action Women's 50 Plus Multivitamin 400 mcg-500 mg calcium-20 mcg Tablet 1 tab PO DAILY omeprazole 20 mg capsule,delayed release(DR/EC) 20 mg PO DAILY Referrals: Ashley White MD [Primary Care Provider, Family Practice] Interventions: ED Discharge Assessment Last Done: 07/14/25 22:25 Discharge Date/Time: 07/14/25 22:25 Print Language: Kyrgyz
--- OUTSIDE RECORDS SUMMARY | 2025-07-14 20:58 | XMS_ITS | Encounter Summary ---
Author Organization [facility] Address [address] [facility] [address] [place] [address] Phone Care Team Providers Care Braille Proofreader Name Role Phone Joaquina Beltran NP Unavailable Lokesh Barrera MD Unavailable Marilee Adams CORRAL BOSS Unavailable [phone] Tammy Ferrera MD Unavailable [phone] Casa Kelley MD Primary Care Provider [phone] Lupe Ames NP Primary Care Provider Cristina Us MD Primary Care Provider + [phone] Encounter Details Date Type Department Care Team (Late st Contact Info) Description 05/10/2020 Transcribe Orders [facility] Admissions - Virtual Department [address] [place], [place] [id number] [phone] Lupe Ames, RUNWAY MODEL [address] [place], [place] [id number] [email or web address] Social History Tobacco Use Types Packs/Day Years Used Date Smoking Tobacco: Never Assessed Comments Unknown Sex and Gender Information Value Date Recorded Sex Assigned at Female 06/18/2025 7:06 PM EDT Legal Sex Female 9:30 PM EDT Gender Identity Female 06/18/2025 7:06 PM EDT Sexual Orientation Lesbian or [place] 06/18/2025 7: 06 PM EDT documented as of this encounter Plan of Treatment Upcoming Encounters Date Type Department Care Team (Late st Contact Info) Description 07/21/2025 3:30 PM EDT Office Visit [facility] [address] [place] [address] Unknown, Unknown, MD Pablo, Tena Devries, CLERK OF WORKS [address] [place] [address] [email or web address] documented as of this encounter Visit Diagnoses Not on filedocumented in this encounter Care Teams Braille Proofreader Relationship Specialty Start Date End Date Casa Kelley MD [address] [place] [address] [email or web address] PCP - General 07/27/17 05/18/20 Lupe Ames NP [address] [place] [address] [email or web address] PCP - General Family Medicine 05/19/20 05/01/22 Cristina Us MD [address] [place] [phone] [email or web address] PCP - General Family Medicine 05/02/22 Joaquina Beltran NP [address] [place] [phone] [email or web address] Historical LMR Provider 07/27/17 Lokesh Barrera MD [address] [place] [address]. [address], [address] [place] [address] Historical LMR Provider 07/27/17 10/19/21 Marilee Adams FNP [address] [place] [address] 204, [address] [place] [address] [email or web address] Historical LMR Provider 07/27/17 10/19/21 Tammy Ferrera MD [address] [facility], [address] [place] [phone] [email or web address] Historical LMR Provider 07/27/17 documented as of this encounter Additional Source Comments The information contained in this document represents components of the legal health record. It is not the complete legal health record.[facility]
--- OUTSIDE RECORDS SUMMARY | 2025-07-14 20:58 | XMS_ITS | Encounter Summary ---
Author Organization [facility] Address [address] [facility] [address] [place] [phone] Phone Care Team Providers Care Unpaid Intern Name Role Phone Cristina Us MD Primary Care Provider [phone] Encounter Details Date Type Department Care Team (Late st Contact Info) Description 05/09/2025 Procedure Pass [facility] Endoscopy Admitting Dept Virtual Department [address] [place] [address] Social History Tobacco Use Types Packs/Day Years Used Date Smoking Tobacco: Never Passive Smoke Exposure: Never Smokeless Tobacco: Never Alcohol Use Standard Drinks/Week Comments Yes 0 (1 standard drink = 0.6 oz pur e alcohol) rare social Education Answer Date Recorded Are you interested in more education? Not on kenya e 02/06/2023 Are you concerned about learning? Not on file 02/06/2023 No 02/06/2023 No 02/06/2023 Digital Access Answer Date Recorded No 03/09/2023 No 03/09/2023 Reliable internet access at home? Not on file 03/09/2023 Device with a working camera? Not on file Intimate Partner Violence Answer Date R ecorded Are you denied basic needs s uch as food, clothing, or medical care? No 05/09/2025 In the past 12 months have y ou been in a relationship with a person who hurts, threatens, or tries to control you? No 05/09/2025 Are you denied basic needs s uch as food, clothing, or medical care? No 05/09/2025 In the past 12 months have y ou been in a relationship with a person who hurts, threatens, or tries to control you? No 05/09/2025 Comments No Sex and Gender Information Value Date Recorded [...] Description 07/21/2025 3:30 PM EDT Office Visit [facility] [address] [place] [phone] Unknown, Unknown, Tena Rojas, RETORT UNLOADER [address] [place] [address] [email or web address] documented as of this encounter Visit Diagnoses Not on filedocumented in this encounter Care Teams Unpaid Intern Relationship Specialty Start Date End Date Cristina Us MD [address] [place] [phone] PCP - General Family Medicine 05/02/22 documented as of this encounter Additional Source Comments The information contained in this document represents components of the legal health record. It is not the complete legal health record.[facility]
--- OUTSIDE RECORDS SUMMARY | 2025-07-14 20:58 | XMS_ITS | Encounter Summary ---
Author Organization [facility] Address [address] [place] [phone] Phone Care Team Providers Care Electric Motor Mechanic Name Role Phone Cristina Us MD Primary Care Provider [phone] Encounter Details Date Type Department Care Team (Latest Contact Info) Description 02/27/2025 Transcribe Orders Virtual Department [address] [place] [phone] Tena Pablo, MASON [address] [place] [address] [email or web address] RUQ pain (Primary Dx); Epigastric pain Social History Tobacco Use Types Packs/Day Years [...] with a working camera? Not on file Comments Unknown Sex and Gender Information Value [...] Description 07/21/2025 3:30 PM EDT Office Visit [facility] [address] [place] [address] Unknown, Unknown, Tena Rojas, BUS ESCORT [address] [place] [address] [email or web address] documented as of this encounter Results * US ABDOMEN LIMITED RIGHT UPPER QUADRANT (03/13/2025 8:09 AM EDT) Anatomical Region Laterality Modality Abdomen Ultrasound 03/13/2025 9:41 AM EDT Impressions 03/13/2025 9:43 AM EDT 1. No cause for right upper quadrant pain evident. 2. 3 mm gallbladder polyp. This does not require further imaging follow-up per current guidelines. Gallbladder polyp guidelines: Kamaya et al. Management of Incidentally Detected Gallbladder Polyps: Society of Radiologists in Ultrasound Consensus Conference Recommendations. April 15 2022. Narrative 03/13/2025 9:43 AM EDT US ABDOMEN LIMITED RIGHT UPPER QUADRANT Referring clinician's provided indication for this examination in Epic: Outside Radiology Order; ruq pain TECHNIQUE: US Abdominal limited right upper quadrant. COMPARISON: None FINDINGS: Liver: No focal lesions. Main Portal Vein: Patent with normal direction of flow. Gallbladder: No gallstones or gallbladder wall thickening. Nonmobile, non- shadowing echogenic focus along the gallbladder wall measuring 3mm, consistent with a polyp. Alegre's Sign: Negative. Biliary: No intrahepatic or extrahepatic biliary ductal dilatation. The common bile duct measures 4 mm. Free Fluid: None. Procedure Note Oneil Bain MD - 03/13/2025 US ABDOMEN LIMITED RIGHT UPPER QUADRANT Referring clinician's provided indication for this examination in Epic:Outside Radiology Order; ruq pain TECHNIQUE: US Abdominal limited right upper quadrant. COMPARISON: None FINDINGS: Liver: No focal lesions. Main Portal Vein: Patent with normal direction of flow. Gallbladder: No gallstones or gallbladder wall thickening. Nonmobile,non- shadowing echogenic focus along the gallbladder wall measuring 3mm,consistent with a polyp. Alegre's Sign: Negative. Biliary: No intrahepatic or extrahepatic biliary ductal dilatation. The common bile duct measures 4 mm. Free Fluid: None. IMPRESSION: 1. No cause for right upper quadrant pain evident. 2. 3 mm gallbladder polyp. This does not require further imagingfollow-up per current guidelines. Gallbladder polyp guidelines: Kamaya et al. Management of Incidentally Detected Gallbladder Polyps:Society of Radiologists in Ultrasound Consensus ConferenceRecommendations. April 15 2022. us Tena Pablo BUS ESCORT IMG US ABDOMEN Final Resu lt documented in this encounter Visit Diagnoses Diagnosis RUQ pain- Primary Abdominal pain, right upper quadrant Epigastric pain Abdominal pain, epigastric RUQ pain Abdominal pain, right upper quadrant Epigastric pain Abdominal pain, epigastric documented in this encounter Care Teams Electric Motor Mechanic Relationship Specialty Start Date End Date Cristina Us MD [address] [place] [phone] [email or web address] PCP - General Family Medicine 05/02/22 documented as of this encounter Additional Source Comments The information contained in this document represents components of the legal health record. It is not the complete legal health record.[facility]
--- OUTSIDE RECORDS SUMMARY | 2025-07-14 20:58 | XMS_ITS | Clinical Summary ---
Author Organization [facility] Address [address] [place] [address] Phone Care Team Providers Care Rn Assessment Name Role Phone Cristina Us MD Primary Care Provider [phone] Allergies No known active allergies Medications multivitamin per tablet as directed. Active famotidine (PEPCID) 40 MG tablet Take 1 tablet by mouth 2 (two) times a day. 02/08/2025 Active pantoprazole (PROTONIX) 40 MG tablet Take 40 mg by mouth every morning. 02/08/2025 Active Active Problems Problem Noted Date Diagnosed Date Depression 02/29/2024 Breast mass 02/29/2024 Encounters Date Type Department Care Team Description 05/09/2025 10:15 AM EDT - 05/09/2025 10:30 AM EDT Surgery [facility] Endoscopy Admitting Dept Virtual Department [address] [place] [address] Mirian Orozco MD ESOPHAGOGASTRODUODENOSCOPY 05/09/2025 10:08 AM EDT Anesthesia Event [facility] Admitting Dept Virtual Department [address] [place] [address] Sandeep Valdez MD 05/09/2025 9:04 AM EDT - 05/09/2025 11:24 AM EDT Hospital Encounter [facility] Admitting [facility] Virtual Department [address] [place] [address] Mirian Orozco MD Discharge Disposition: Home or Self Care 05/09/2025 Procedure Pass [facility] Endoscopy Admitting Dept Virtual Department [address] [place] [address] 05/02/2025 11:30 AM EDT Pre-Admission Testing Pre Procedure Evaluation [address] [place] [address] Mirian Orozco MD from Last 3 Months Immunizations Immunization Administration Dates Next Due COVID-19 (Pre-08/03) Moderna Vaccine Adult Booster/6-11yrs Primary 09/29/2022 DT 03/05/2009 Hepatitis A, Unspecified 10/12/2003 Hepatitis B 12/19/2008,11/16/2008 Influenza Quadrivalent Prese rvative Free IM 09/29/2022,11/26/2021,08/23/2019,2017,08/05/2017,07/30/2016 Influenza Recombinant Konstantin valent Preservative Free IM 07/16/2020 Influenza, Unspecified Formulation 07/12/2022 Polio, Unspecified Formulation 02/26/2009 Td (adult),2 Lf Tetanus Toxo id, PF, Adsorbed 11/26/2021 Tdap 11/30/2012 Family History Medical History Relation Comments Hypertension Father 2 Cancer Maternal Grandfather 2 Cancer Maternal Grandmother 2 Diabetes mellitus Maternal Grandmother 2 Hypertension Mother 2 Relation Status Comments Father 1 Alive Father 2 Maternal Grandfather 1 Maternal Grandfather 2 Maternal Grandmother 1 Maternal Grandmother 2 Mother 1 Alive Mother 2 Social History Tobacco Use Types Packs/Day Years Used Date Smoking Tobacco: Never Passive Smoke Exposure: Never Smokeless Tobacco: Never Tobacco Cessation:Counseling Given: Not Answered Alcohol Use Standard Drinks/Week Comments Yes 0 [...] or Talamantes 06/18/2025 7: 06 PM EDT Last Filed Vital Signs Vital Sign Reading Time Taken Comments Blood Pressure 110/79 05/09/2025 10:37 AM EDT Pulse 56 05/09/2025 10:37 AM EDT Temperature 35.9 C (96.7 F) 05/09/2025 10:22 AM EDT Respiratory Rate 19 05/09/2025 10:37 AM EDT Oxygen Saturation 100% 05/09/2025 10:37 AM EDT Inhaled Oxygen Concentration - - Weight 56.7 kg (125 lb) 05/08/2025 8:42 AM EDT Height 162.6 cm (5' 4 ) 05/08/2025 8:42 AM EDT Body Mass Index 21.46 05/08/2025 8:42 AM EDT Plan of Treatment Upcoming Encounters Date Type Department Care Team (Late st Contact Info) Description 07/21/2025 3:30 PM EDT Office Visit [facility] [address] [place] [id number] Unknown, Unknown, Tena Rojas, JUDICIAL ADMINISTRATIVE ASSISTANT [address] [place] [address] [email or web address] Health Maintenance Due Date Last Done Comments LIPID PANEL 1975 DEPRESSION SCREENING 1986 HEPATITIS C SCREENING 1992 HIV ONE-TIME SCREENING (18-65 YEARS) 1992 MAMMOGRAM 2014 COLOGUARD 2019 COLONOSCOPY 2019 COLORECTAL CANCER SCREENING 2019 FIT TEST 2019 FOBT 2019 SIGMOIDOSCOPY 2019 VIRTUAL COLONOSCOPY 2019 PNEUMOCOCCAL VACCINES (50+ years) (1 of 1 - PCV) 2024 ZOSTER VACCINES (1 of 2) 2024 INFLUENZA VACCINE (#1) 2025 , 07/12/2022, 11/26/2021, Additional history exists COVID-19 VACCINE ( season) 2025 09/29/2022, 09/29/2022, 08/27/2021, Additional history exists PAP SMEAR 02/16/2027 02/17/2024, 08/23/2019 Adult Td,Tdap Booster 11/26/2031 11/26/2021, 013 HEPATITIS A VACCINES Aged Out 10/12/2003 No long er eligible based on patient's age to complete this topic SMOKING STATUS SCREENING (Once After 26 Yrs) Completed 05/09/2025 HIB VACCINES Aged Out No longer eligi ble based on patient's age to complete this topic MENINGOCOCCAL VACCINES (ACWY) Aged Out No longer eligible based on patient's age to complete this topic MENINGOCOCCAL VACCINES (B) Aged Out N o longer eligible based on patient's age to complete this topic Medical Devices Not on file Procedures Procedure Name Priority Date/Time Associated Diagnosis Comments [place] EDG TRANSORAL BIOPSY SINGLE/MULTIPLE 05/09/2025 10:00 AM EDT egd [place] EGD ABLATE TUMOR POLYP/LE REENA W/DILATION& WIRE 05/09/2025 10:00 AM EDT egd WV ESOPHAGOGASTRODUODENOSCOP Y TRANSORAL DIAGNOSTIC 05/09/2025 10:00 AM EDT egd ENDOSCOPY PROCEDURE 05/09/2025 9:56 AM EDT ANATOMIC PATHOLOGY Routine 05/09/2025 12:00 AM EDT PAP TEST Routine 02/17/2024 12:00 AM EDT from Last 3 Months or Most Recently Relevant to Health Maintenance Results * ENDOSCOPY PROCEDURE (05/09/2025 9:56 AM EDT) Narrative Transcriptions Mirian Orozco MD - 05/09/2025 9:56 AM EDT [facility] Patient Name: Katheryn Blood Attending MD:: MIRIAN OROZCO MD, Procedure Date: 05/09/2025 9:56 AM Date of : 1975 Age: 50 Admit Type: Outpatient Gender: Female Room: [place] [address] Referring MD: CRISTINA US MD Exam Type: Upper GI endoscopy Indications: Epigastric abdominal pain, Unexplained chest pain Medications: Propofol per Anesthesia Procedure: Informed consent was obtained from the patientafter discussion of the indications, limitations, alternatives, benefits, and risks of the procedure. Risks specifically discussed include but are not limited to medication reactions, missed lesions, bleeding, perforation, or the need for emergent surgery. Throughout the procedure, the patient's blood pressure, pulse, end-tidal CO2, and oxygensaturations were monitored continuously. The Endoscope was introduced through the mouth, and advanced to the second part of duodenum. The upperGI endoscopy was accomplished without difficulty. The patient tolerated the procedure well. Complications: No immediate complications. Estimated blood loss:None. Findings: A small hiatal hernia was present. The Z-line was regular and was found at the gastroesophageal junction. The exam of the esophagus was otherwise normal. Biopsies were taken with a cold forceps in thelower third of the esophagus for histology. The entire examined stomach and gastroesophageal junction (on retroflexion) were normal. Biopsieswere taken with a cold forceps for histology. (Biopsies were obtained from the antrum.) The examined duodenum was normal. Impression: - Small hiatal hernia. - Z-line regular, at the gastroesophagealjunction. - Normal stomach and gastroesophageal junction. Biopsied. - Normal examined duodenum. - Biopsies were taken with a cold forceps for histology in the lower third of the esophagus. Recommendation: - Await pathology results. - Continue present medications. MIRIAN OROZCO MD 05/09/2025 10:20:40 AM This report has been signed electronically. Number of Addenda: 0 Note Initiated On: 05/09/2025 9:56 AM Procedure Code(s): --- Professional --- 05694, Esophagogastroduodenoscopy, flexible, transoral; with biopsy, single or multiple --- Technical --- 05953, Esophagogastroduodenoscopy, flexible, transoral; with biopsy, single or multiple Diagnosis Code(s): --- Professional --- K44.9, Diaphragmatic hernia without obstruction or gangrene R10.13, Epigastric pain R07.9, Chest pain, unspecified --- Technical --- K44.9, Diaphragmatic hernia without obstruction or gangrene R10.13, Epigastric pain R07.9, Chest pain, unspecified CPT copyright 2021 [employer]. All rights reserved. The codes documented in this report are preliminary and upon white washer piler reviewmay be revised to meet current compliance requirements. Procedure Date: 05/09/2025 9:56:[address] [place] [address] us Cristina Us MD GI PROCEDURE ORDERABLES Fi nal Result * Anatomic Pathology (05/09/2025 12:00 AM EDT) 05/09/2025 05/09/2025 10: 57 AM EDT Narrative SEE NARRATIVE - 05/10/2025 2:27 PM EDT [address] [address] Comedian: Sabas Bull MD Surgical Pathology Report FINAL PATHOLOGIC DIAGNOSIS: A. STOMACH, ANTRUM, BIOPSY: No pathologic abnormality. B. DISTAL ESOPHAGUS, BIOPSY: Benign squamous mucosa. No evidence of inflammation or eosinophilia. Electronically Signed Out By Shereen Hurst MD By his/her signature above, the pathologist listed as making the Final Diagnosis certifies that he/she has personally reviewed this case and confirmed or corrected the diagnosis. CLINICAL HISTORY Epigastric abdominal pain, unexplained chest pain SPECIMENS SUBMITTED: A: STOMACH ANTRUM, BIOPSY B: DISTAL ESOPHAGUS, BIOPSY GROSS DESCRIPTION A. STOMACH ANTRUM, BIOPSY: Received in formalin are 3 irregular gudino-pink soft tissue fragments varying in size 0.3 x 0.2 x 0.1 cm up to 0.5 x 0.3 x 0.1 cm which are submitted in toto in a single cassette labeled A1. B. DISTAL ESOPHAGUS, BIOPSY: Received in formalin are multiple irregular gudino-pink soft tissue fragments varying in size from 0.2 x 0.2 x 0.1 cm up to 0.7 x 0.2 x 0.1 cm which are submitted in toto in a single cassette labeled B1. Grossed by: OZ Ontiveros, PA([facility]) [id number] 05/09/2025 Grossing Staff: [id number] Patient Name: KATHERYN RENDON : 1975 (Age: 50) Sex: F Institution: [facility] Location: [facility] Date of Operation: 05/09/2025 Date of Reported: 05/10/2025 14:27 Results To: Mirian Orozco MD, AB Cristina Us MD, BS Mirian Orozco MD PATHOLOGY ORDERABLES Final Result SEE NARRATIVE * Pap Test (02/17/2024 12:00 AM EDT) 02/17/2024 02/23/2024 11: 10 AM EDT Narrative SEE NARRATIVE - 02/29/2024 10:51 AM EDT [address] [address] Comedian: Shereen Hurst MD PULMONARY FELLOW Cytology Report FINAL DIAGNOSIS A. PAP SMEAR (SUREPATH) CE: SPECIMEN ADEQUACY: Satisfactory for evaluation; transformation zone present. INTERPRETATION: NEGATIVE FOR INTRAEPITHELIAL LESION OR MALIGNANCY. Electronically Signed Out By: LEXIE Reyez(ASCP) The Pap test is a screening test primarily for squamous cancers and precursors and has associated false-negative and false-positive results. New technologies such as liquid-based preparations may decrease but will not eliminate all false-negative results. Regular sampling and follow-up of unexplained clinical signs and symptoms are recommended to minimize false negative results. PROCEDURES/ADDENDA HPV Testing (Requested) Ordered Date: 02/23/2024 A. PAP SMEAR (SUREPATH) CE: Human Papilloma Virus Test NEGATIVE for high-risk Human Papilloma Virus types 16, 18, 45 and the Other high risk probe set (Includes 31, 33, 35, 39, 51, 52, 56, 58, 59, 66, 68) Note: Testing performed by [employer] HR-HPV analysis. Clinical correlation is advised. This HPV test was performed at [facility], [address] [place] [address]. This test has been FDA approved for both SurePath and ThinPrep cervical cytology specimens. The accuracy and precision of this test for all other specimen sources has been verified in the Cytopathology Laboratory of the [facility] and has not been cleared or approved by the U.S. Food and Drug Administration. Clinical correlation is advised. CLINICAL HISTORY Date of Last Menstrual Period: 01-11-2024 Other Clinical Conditions: Screening Pap SPECIMEN SOURCE A: PAP SMEAR (SUREPATH) CE Patient Name: KATHERYN RENDON : 1975 (Age: 48) Sex: F Institution: [facility] Location: [facility] Date of Collection: 02/17/2024 Date of Reported: 02/29/2024 10:51 Results to: Ashley Perkins MD Ashley Perkins MD CYTOLOGY ORDERABLES Final Re sult [facility] Organization Address City/State/ZIP Co de Phone Number SEE NARRATIVE from Last 3 Months or Most Recently Relevant to Health Maintenance Insurance * Guarantor: Blood, Katheryn Account Type Relation to Patient Date of Phone Billing Address Personal/Family Self 1975 [address] [place] [address] [facility] COMPLETE O Member Subscriber Plan / Payer (Ef fective 2025-Present) Name:Blood, Katheryn Relation to Subscriber:Self Name:Blood, Katheryn Payer ID:[id number] (NAIC) Group ID:Not on file Type:HMO Address: [employer] CLAIMS [address] [facility] [place] [address] * Guarantor: Blood, Katheryn Account Type Relation to Patient Date of Phone Billing Address Personal/Family Self 1975 [address] [place] [address] [facility] COMPLETE HMO Member Subscriber Plan / Payer (Ef fective 2025-Present) Name:Blood, Katheryn Relation to Subscriber:Self Name:Blood, Katheryn Payer ID:[id number] (NAIC) Group ID:Not on file Type:HMO Address: [employer] CLAIMS [address] [facility] [place] [address] * Guarantor: Blood, Katheryn Account Type Relation to Patient Date of Phone Billing Address Personal/Family Self 1975 [address] [place] [address] [facility] COMPLETE O Member Subscriber Plan / Payer (Ef fective 2025-Present) Name:Blood, Katheryn Relation to Subscriber:Self Name:Blood, Katheryn Payer ID:[id number] (NAIC) Group ID:Not on file Type:HMO Address: [employer] CLAIMS [address] [place] [address] * Guarantor: Blood, Katheryn Account Type Relation to Patient Date of Phone Billing Address Personal/Family Self 1975 [address] [place] [address] [facility] COMPLETE O Member Subscriber Plan / Payer (Ef fective 2025-Present) Name:Blood, Katheryn Relation to Subscriber:Self Name:Blood, Katheryn Payer ID:[id number] (NAIC) Group ID:Not on file Type:HMO Address: [employer] CLAIMS [address] [place] [address] * Guarantor: Blood, Katheryn Account Type Relation to Patient Date of Phone Billing Address Personal/Family Self 1975 [address] [place] [address] [facility] COMPLETE O Member Subscriber Plan / Payer (Ef fective 2025-Present) Name:Blood, Katheryn Relation to Subscriber:Self Name:Blood, Katheryn Payer ID:[id number] (NAIC) Group ID:Not on file Type:HMO Address: [employer] CLAIMS [address] [place] [address] * Guarantor: Blood, Katheryn Account Type Relation to Patient Date of Phone Billing Address Personal/Family Self 1975 [address] [place] [address] [facility] COMPLETE O Member Subscriber Plan / Payer (Ef fective 2025-Present) Name:Blood, Katheryn Relation to Subscriber:Self Name:Blood, Katheryn Payer ID:[id number] (NAIC) Group ID:Not on file Type:HMO [facility] [address] [place] [address] * Guarantor: Blood, Katheryn Account Type Relation to Patient Date of Phone Billing Address Personal/Family Self 1975 [address] [place] [address] * Guarantor: Blood, Katheryn Account Type Relation to Patient Date of Phone Billing Address Personal/Family Self 1975 [address] [place] [address] * Guarantor: Blood, Katheryn Account Type Relation to Patient Date of Phone Billing Address Personal/Family Self 1975 [address] [place] [address] * Guarantor: Blood, Katheryn Account Type Relation to Patient Date of Phone Billing Address Personal/Family Self 1975 [address] [place] [address] Care Teams Rn Assessment Relationship Specialty Start Date End Date Cristina Us MD [address] [place] [phone] [email or web address] PCP - General Family Medicine 05/02/22 Additional Source Comments The information contained in this document represents components of the legal health record. It is not the complete legal health record.[facility]
--- OUTSIDE RECORDS SUMMARY | 2025-07-14 20:58 | XMS_ITS | Encounter Summary ---
Author Organization [facility] Address [address] [place] [address] Phone Care Team Providers Care Process Engineering Intern Name Role Phone Joaquina Beltran NP Unavailable Lokesh Barrera MD Unavailable Marilee Adams CASHIER AND WAITER/WAITRESS Unavailable Tammy Ferrera MD Unavailable Casa Kelley MD Primary Care Provider Lupe Ames NP Primary Care Provider Cristina Us MD Primary Care Provider Encounter Details Date Type Department Care Team (Late st Contact Info) Description 05/14/2020 Transcribe Orders Virtual Department [address] [place] [address] Lupe Ames, STEPHANIE [address] [place], [place] [id number] [email or web address] Encounter for laboratory testing for COVID-19 virus (Primary Dx) Social History Tobacco Use Types Packs/Day Years [...] Visit [facility] [address] [place] [address] Unknown, Unknown, Tena Rojas, PROCESS CONTROLS TECHNICIAN [address] [place] [address] [email or web address] documented as of this encounter Results * COVID-19 PCR Order (05/30/2020 2:12 PM EDT) Specimen Source NASOPHARYNGEAL SWAB (GEOTECHNICIAL PROPERTIES TECHNICIAN) [facility] COVID Testing Status Sent to [facility] Micro Lab [facility] Other 05/30/2020 2:12 PM EDT 05/30/2020 3:26 PM EDT Lupe Ames GEOTECHNICIAL PROPERTIES TECHNICIAN BODY FLUIDS AND STOOLS ORDERABLES Final Result [address] [address] documented in this encounter Visit Diagnoses Diagnosis Encounter for laboratory testing for COVID-19 virus- Primary documented in this encounter Care Teams Process Engineering Intern Relationship Specialty Start Date End Date Casa Kelley MD [address] [place] [address] [email or web address] PCP - General 07/27/17 05/18/20 Lupe Ames NP [address] [place] [address] [email or web address] PCP - General Family Medicine 05/19/20 05/01/22 Cristina Us MD [address] [place] [address] PCP - General Family Medicine 05/02/22 Joauqina Beltran, STEPHANIE [address] [place] [email or web address] Historical LMR Provider 07/27/17 Lokesh Barrera MD [address] [facility] [address], [address] [place] [address] Historical LMR Provider 07/27/17 10/19/21 Marilee Adams FNP [address] [facility] [address], [address] [place] [address] Historical LMR Provider 07/27/17 10/19/21 Tammy Ferrera MD [address] [place] [address] Historical LMR Provider 07/27/17 documented as of this encounter Additional Source Comments The information contained in this document represents components of the legal health record. It is not the complete legal health record.[facility]
[2025-07-14] MEDS: Rabies Vaccine (PCEC)/PF 1 ML VIAL IM (21:47)
[2025-07-14 22:25] VITALS: BP 143/73; PULSE 86; RESP 16; TEMP 36.4; O2SAT 100
== END 2025-07-14 22:25 | disposition home or self-care (01) ==
PROVIDERS: Emergency Provider Emergency Medicine Emergency Medical Services; PCP Family Medicine
DX: S81.851A Open bite, right lower leg, initial encounter (principal); Y93.9 Activity, unspecified; W54.0XXA Bitten by dog, initial encounter; Y92.9 Unspecified place or not applicable; Y99.8 Other external cause status; Z79.899 Other long term (current) drug therapy; Z29.14 Encounter for prophylactic rabies immune globulin; Z20.3 Contact with and (suspected) exposure to rabies; Z23 Encounter for immunization
CPT/HCPCS: 90375; 90471; 90472; 90675; 96372; 99282; 99284

== ENCOUNTER → 2025-07-28 08:13 | Outpatient (RCR) | payer OTHER, SELFPAY ==
[2025-07-17 15:11] VITALS: BP 141/78; PULSE 44; RESP 16; TEMP 36.7; O2SAT 98
[2025-07-17] MEDS: Rabies Vaccine (PCEC)/PF 1 ML VIAL IM (15:15)
[2025-07-21 07:22] VITALS: BP 143/64; PULSE 49; RESP 18; TEMP 36.1
[2025-07-21] MEDS: Rabies Vaccine (PCEC)/PF 1 ML VIAL IM (07:24)
[2025-07-28 08:07] VITALS: BP 148/63; PULSE 51; RESP 16; TEMP 36.7; O2SAT 99
[2025-07-28] MEDS: Rabies Vaccine (PCEC)/PF 1 ML VIAL IM (08:10)
== END | disposition home or self-care (01) ==
LOC: HO.INF 07-17 15:00
PROVIDERS: Visit Provider Physician Assistant Medical
DX: Z20.3 Contact with and (suspected) exposure to rabies (principal); T14.8XXD Other injury of unspecified body region, subsequent encounter; W54.0XXD Bitten by dog, subsequent encounter
CPT/HCPCS: 90471; 90675